=== PATIENT | male | born 2000 | race Native Hawaiian/Other Pacific Islander ===

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

== ENCOUNTER 2020-05-12 10:14 | Outpatient (CLI) | payer OTHER ==
[2020-05-12 10:59] LABS: POTASSIUM 4.5 mmol/L (3.6-5.2)
[2020-05-12 15:44] LABS: PLATELET COUNT 251 K/uL (142-355)
== END 2020-05-12 19:21 | disposition home or self-care (01) ==
LOC: LABW 10:14
PROVIDERS: ATTEND Internal Medicine
DX: E23.0 Hypopituitarism (principal); E03.8 Other specified hypothyroidism; E30.0 Delayed puberty
CPT/HCPCS: 36415; 80053; 80061; 84153; 84402; 84403; 84439; 85027

== ENCOUNTER 2020-05-28 11:08 | Outpatient (CLI) | payer OTHER | END 2020-05-28 22:01 | disposition home or self-care (01) | LOC: INF 11:08 | PROVIDERS: ATTEND Internal Medicine | DX: Z23 Encounter for immunization (principal) | CPT/HCPCS: 96372 ==

== ENCOUNTER 2020-06-03 08:04 | Outpatient (CLI) | payer OTHER | END 2020-06-03 19:49 | disposition home or self-care (01) | LOC: US 08:04 | PROVIDERS: ATTEND Pediatrics | DX: R74.8 Abnormal levels of other serum enzymes (principal) ==

== ENCOUNTER 2020-06-19 11:13 | Outpatient (CLI) | payer OTHER | END 2020-06-19 21:16 | disposition home or self-care (01) | LOC: INF 11:13 | PROVIDERS: ATTEND Internal Medicine | DX: Z23 Encounter for immunization (principal) | CPT/HCPCS: 96372 ==

== ENCOUNTER 2020-07-16 15:10 | Outpatient (CLI) | payer OTHER | END 2020-07-16 21:38 | disposition home or self-care (01) | LOC: LABW 15:10 | PROVIDERS: ATTEND Internal Medicine | DX: E03.8 Other specified hypothyroidism (principal); E23.0 Hypopituitarism; E30.0 Delayed puberty | CPT/HCPCS: 36415; 84439 ==

== ENCOUNTER 2021-01-15 07:34 | Outpatient (CLI) | payer OTHER ==
[2021-01-15 07:52] LABS: PLATELET COUNT 292 K/uL (142-355)
== END 2021-01-15 20:00 | disposition home or self-care (01) ==
LOC: LABW 07:34
PROVIDERS: ATTEND Internal Medicine
DX: E30.0 Delayed puberty (principal); E23.0 Hypopituitarism; E03.8 Other specified hypothyroidism
CPT/HCPCS: 36415; 80053; 80061; 82248; 84153; 84402; 84403; 84439; 85027

== ENCOUNTER 2021-03-17 11:33 | Outpatient (CLI) | payer OTHER | END 2021-03-17 19:13 | disposition home or self-care (01) | LOC: LABW 11:33 | PROVIDERS: ATTEND Internal Medicine | DX: E03.8 Other specified hypothyroidism (principal); E23.0 Hypopituitarism; E30.0 Delayed puberty | CPT/HCPCS: 36415; 84481 ==

== ENCOUNTER 2021-05-21 12:55 | Outpatient (CLI) | payer OTHER | END 2021-05-21 20:43 | disposition home or self-care (01) | LOC: LABW 12:55 | PROVIDERS: ATTEND Internal Medicine | DX: E30.0 Delayed puberty (principal); E03.8 Other specified hypothyroidism; E23.0 Hypopituitarism | CPT/HCPCS: 36415; 84439 ==

== ENCOUNTER 2021-07-23 14:18 | Outpatient (CLI) | payer OTHER | END 2021-07-23 21:21 | disposition home or self-care (01) | LOC: LABW 14:18 | PROVIDERS: ATTEND Internal Medicine | DX: E03.8 Other specified hypothyroidism (principal); E23.0 Hypopituitarism; E30.0 Delayed puberty | CPT/HCPCS: 36415; 84439 ==

== ENCOUNTER 2021-09-04 08:08 | Outpatient (CLI) | payer OTHER ==
[2021-09-04 08:54] LABS: PLATELET COUNT 272 K/uL (142-355)
== END 2021-09-04 21:14 | disposition home or self-care (01) ==
LOC: LABW 08:08
PROVIDERS: ATTEND Internal Medicine
DX: E23.0 Hypopituitarism (principal); E03.8 Other specified hypothyroidism; E30.0 Delayed puberty; E88.81 Metabolic syndrome and other insulin resistance
CPT/HCPCS: 36415; 80053; 80061; 82248; 83036; 84402; 84403; 84439; 85027

== ENCOUNTER 2021-12-11 12:39 | Outpatient (CLI) | payer OTHER | END 2021-12-11 19:05 | disposition home or self-care (01) | LOC: LABW 12:39 | PROVIDERS: ATTEND Pediatrics | DX: E03.8 Other specified hypothyroidism (principal); E29.1 Testicular hypofunction | CPT/HCPCS: 36415; 84402; 84403; 84439; 84443; 84480 ==

== ENCOUNTER 2021-12-18 12:24 | Outpatient (CLI) | payer OTHER ==
[2021-12-18 13:37] LABS: POTASSIUM 4.2 mmol/L (3.6-5.2)
== END 2021-12-18 20:33 | disposition home or self-care (01) ==
LOC: LABW 12:24
PROVIDERS: ATTEND Internal Medicine Endocrinology, Diabetes & Metabolism
DX: E03.8 Other specified hypothyroidism (principal); E29.1 Testicular hypofunction
CPT/HCPCS: 36415; 80053; 80061; 82024; 82533; 83003; 83525; 84146; 84305

== ENCOUNTER 2022-05-18 11:45 | Outpatient (CLI) | payer OTHER | END 2022-05-18 19:28 | disposition home or self-care (01) | LOC: LABW 11:45 | PROVIDERS: ATTEND Internal Medicine Endocrinology, Diabetes & Metabolism | DX: E29.1 Testicular hypofunction (principal); E03.8 Other specified hypothyroidism | CPT/HCPCS: 36415; 80053; 80061; 84402; 84403; 84439; 84443; 84481; 85014; 85018 ==

== ENCOUNTER 2022-11-24 08:12 | Outpatient (CLI) | payer OTHER ==
[2022-11-24 08:25] LABS: PLATELET COUNT 291 K/uL (142-355)
[2022-11-24 08:55] LABS: POTASSIUM 3.9 mmol/L (3.6-5.2)
== END 2022-11-24 19:47 | disposition home or self-care (01) ==
LOC: LABW 08:12
PROVIDERS: ATTEND Internal Medicine Endocrinology, Diabetes & Metabolism
DX: E88.81 Metabolic syndrome and other insulin resistance (principal); E03.8 Other specified hypothyroidism
CPT/HCPCS: 36415; 80053; 80061; 83036; 84402; 84403; 84439; 84443; 84481; 85027